=== PATIENT | female | born 1980 | race Caucasian/White ===

== ENCOUNTER → 2017-11-07 09:14 | Outpatient (CLI) | payer MEDICAID, SELFPAY ==
[2017-11-07 13:05] LABS: Estradiol 87.9 pg/mL; Prolactin 10.3 ng/mL; T4 Free Direct 1.14 ng/dL (0.76-1.46); Thyroid Stim Hormone (TSH) 0.98 uIU/mL (0.358-3.74)
== END ==
PROVIDERS: Visit Provider Obstetrics & Gynecology
DX: L70.9 Acne, unspecified (principal); N92.6 Irregular menstruation, unspecified; N64.52 Nipple discharge
CPT/HCPCS: 36415; 82670; 84146; 84403; 84439; 84443

== ENCOUNTER → 2018-06-14 13:38 | Outpatient (CLI) | payer MEDICAID, SELFPAY ==
[2018-06-16 11:58] LABS: HPV Reflexed? NOT INDICATED
== END ==
PROVIDERS: Visit Provider Obstetrics & Gynecology
DX: Z12.4 Encounter for screening for malignant neoplasm of cervix (principal)
CPT/HCPCS: 88175; G0145